=== PATIENT | female | born 1980 | race Caucasian/White ===

== ENCOUNTER 2022-06-02 10:44 | Emergency (ER) | payer MEDICAID, OTHER ==
[~2022-06-02] VITALS: Ht 187.9 cm; Wt 89.8 kg
[2022-06-02] MEDS ORDERED: fentaNYL INJ 100 MCG/2 ML AMP IVP STA ×2 (11:12→13:18)
[2022-06-02] MEDS ORDERED: HEParin (CENTRAL IV FLUSH) 500 UNIT/5 ML SYR ONE (11:31)
[2022-06-02 12:23] LABS: BASOPHILS # (AUTO) 0.1 10^3/uL (0.0-0.1); BASOPHILS % (AUTO) 1 % (0-10); EOSINOPHILS # (AUTO) 0.3 10^3/uL (0.0-0.3); EOSINOPHILS % (AUTO) 3 % (0-10); HEMATOCRIT 42 % (35-52); HEMOGLOBIN 13.2 g/dL (11.5-16.0); LYMPHOCYTES # (AUTO) 2.7 10^3/uL (1.0-4.0); LYMPHOCYTES % (AUTO) 21 % (12-44); MEAN CORPUSCULAR HEMOGLOBIN 29 pg (25-34); MEAN CORPUSCULAR HGB CONC 32 g/dL (32-36); MEAN CORPUSCULAR VOLUME 91 fL (80-99); MEAN PLATELET VOLUME 10.4 fL (9.0-12.2); MONOCYTES # (AUTO) 0.7 10^3/uL (0.0-1.0); MONOCYTES % (AUTO) 6 % (0-12); NEUTROPHILS # (AUTO) 8.9 10^3/uL (1.8-7.8); NEUTROPHILS % (AUTO) 70 % (42-75); PLATELET COUNT 296 10^3/uL (130-400); WHITE BLOOD COUNT 12.7 10^3/uL (4.3-11.0)
--- NOTE | 2022-06-02 12:35 | Diagnostic Imaging Report ---
EXAMINATION: Left foot radiograph EXAM DATE: 06/02/2022 11:56 AM COMPARISON: None available. HISTORY: increased pain x 1 week, hx osteomyelitis, nonhealing diabetic ulcer TECHNIQUE: 3 views FINDINGS: Soft tissue injury overlying the inferior plantar soft tissues. There is osseous irregularity seen within the cuboid and fifth metatarsal. No acute fracture is seen. There is mild joint space narrowing within the tarsometatarsal joints. IMPRESSION: 1. Soft tissue irregularity with osseous erosion of the adjacent fifth metatarsal and cuboid bone compatible with history of osteomyelitis. Dictated by: Dictated on workstation # [id number]
[2022-06-02 12:41] LABS: SMEAR SCAN COMMENT RARE PLT CLUMPS
--- NOTE | 2022-06-02 12:50 | ED Integumentary General ---
General Chief Complaint: Skin/Wound Problems Stated Complaint: LT FOOT WOUND/PAIN Nursing Triage Note: Patient reports she has had a wound on her left foot for 2 years. She states her wound care provider at [place], [place] had recommended an above the knee amputation d/t osteomyelits, but his surgical privileges have been revoked and he is no longer able to do the surgery. Source: patient, spouse History of Present Illness Date Seen by Provider: Jun 02, 2022 Time Seen by Provider: 10:48 Initial Comments 42-year-old female presenting by private vehicle to the emergency department with her spouse due to complaints of increased pain to her chronic diabetic left foot wound. She states the wound has been there for over 2 years and she follows with a primary care provider and surgeon at [facility]. She states in the last week she has had increased pain and purulent drainage from the diabetic ulcer on the foot. She had vascular testing done at [facility] in [place] on 24 May 2022 for Distal Circulation Examination. 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 reports that he feels like she needs to be admitted to hospital somewhere for amputation and more emergent medical management. Patient voiced frustration with the system and her being unable to continue to get care with current surgeon. She states that she has been taking Levaquin and daptomycin daily as prescribed by her surgeon and wound care doctor from [place]. She has previously been on vancomycin and states that her veins are so deteriorated from IV antibiotics as well as peripheral vascular disease that she has a port in her right chest for IV medications and blood draws. Timing/Duration: getting worse (She felt her symptoms were worsening in the last week but has had a diabetic foot ulcer for over 2 years.) Severity: severe Location: feet (Left lateral foot) Possible Cause: other (Poor circulation with diabetes) Associated Symptoms: No blisters; edema (Left lower extremity 1+ nonpitting edema); No fever, No flushing, No headache; malaise, numbness (Chronic diabetic neuropathy) Allergies and Home Medications Allergies Coded Allergies: aspirin (Verified Allergy, Unknown, 06/02/22) latex (Verified Allergy, Unknown, 06/02/22) zolpidem (Verified Allergy, Unknown, 06/02/22) Patient Home Medication List Home Medication List Reviewed: Yes Review of Systems Review of Systems Constitutional: No chills, No fever; malaise EENTM: no symptoms reported Respiratory: no symptoms reported Cardiovascular: no symptoms reported Gastrointestinal: No nausea, No vomiting Genitourinary: No dysuria Musculoskeletal: see HPI Skin: see HPI (Chronic diabetic foot ulcer with exposure of muscles and tendons but no bone visible) Psychiatric/Neurological: See HPI Past Yfoevks-Mfvtjf-Zihqjy Hx Patient Social History Tobacco Use?: Yes Tobacco type used: Cigarettes Smoking Status: Current Everyday Smoker Substance use?: No Alcohol Use?: No Pt feels they are or have been: No Past Medical History Surgery/Hospitalization HX: DM, left foot ulcer, bipolar, gallstones, diverticulosis, degenerative disc disease, sciatica Physical Exam Vital Signs Vital Signs - First Documented 06/02/22 10:47 Temp 35.6 Pulse 106 Resp 18 B/P (MAP) 118/77 (91) Pulse Ox 100 O2 Delivery Room Air Capillary Refill : Less Than 3 Seconds General Appearance: no apparent distress, other (Appears older than stated age) Cardiovascular: No normal peripheral pulses (+1 dorsalis pedis pulse bilaterally); regular rate, rhythm Respiratory: chest non-tender, lungs clear, normal breath sounds, no respiratory distress, no accessory muscle use Gastrointestinal: normal bowel sounds, non tender, soft, no pulsatile mass Extremities: swelling (mild swelling to left foot and lower extremity. open wound stage 2 with exposure of muscle and ligaments but no bone visible on lateral left foot, Approximately 8.5 cm long by 3.8 cm wide. Foul odor noted and purulent appearing drainage on dressing that patient has in place on arrival to ED. No active drainage on exam) Neurologic/Psychiatric: alert, oriented x 3 Skin: warm/dry Skin Problem Location: lower extremities (left lower extremity) Skin Problem Character: erythema, lesion (diabetic foot ulcer stage 2 on left lateral foot) Progress/Results/Core Measures Results/Orders Lab Results Laboratory Tests Test 06/02/22 12:15 06/02/22 12:35 Range/Units White Blood Count 12.7 H 4.3-11.0 10^3/uL Red Blood Count 4.58 3.80-5.11 10^6/uL Hemoglobin 13.2 11.5-16.0 g/dL Hematocrit 42 35-52 % Mean Corpuscular Volume 91 80-99 fL Mean Corpuscular Hemoglobin 29 25-34 pg Mean Corpuscular Hemoglobin Concent 32 32-36 g/dL Red Cell Distribution Width 15.7 H 10.0-14.5 % Platelet Count 296 130-400 10^3/uL Mean Platelet Volume 10.4 9.0-12.2 fL Immature Granulocyte % (Auto) 1 % Neutrophils (%) (Auto) 70 42-75 % Lymphocytes (%) (Auto) 21 12-44 % Monocytes (%) (Auto) 6 0-12 % Eosinophils (%) (Auto) 3 0-10 % Basophils (%) (Auto) 1 0-10 % Neutrophils # (Auto) 8.9 H 1.8-7.8 10^3/uL Lymphocytes # (Auto) 2.7 1.0-4.0 10^3/uL Monocytes # (Auto) 0.7 0.0-1.0 10^3/uL Eosinophils # (Auto) 0.3 0.0-0.3 10^3/uL Basophils # (Auto) 0.1 0.0-0.1 10^3/uL Immature Granulocyte # (Auto) 0.1 0.0-0.1 10^3/uL Smear Scan RARE PLT CLUMPS Sodium Level 136 135-145 MMOL/L Potassium Level 4.5 3.6-5.0 MMOL/L Chloride Level 102 98-107 MMOL/L Carbon Dioxide Level 24 21-32 MMOL/L Anion Gap 10 5-14 MMOL/L Blood Urea Nitrogen 11 7-18 MG/DL Creatinine 0.55 L 0.60-1.30 MG/DL Estimat Glomerular Filtration Rate 118 BUN/Creatinine Ratio 20 Glucose Level 196 H 70-105 MG/DL Lactic Acid Level 1.18 0.50-2.00 MMOL/L Calcium Level 9.6 8.5-10.1 MG/DL Corrected Calcium 9.5 8.5-10.1 MG/DL Total Bilirubin 0.2 0.1-1.0 MG/DL Aspartate Amino Transf (AST/SGOT) 8 5-34 U/L Alanine Aminotransferase (ALT/SGPT) 7 0-55 U/L Alkaline Phosphatase 96 40-136 U/L C-Reactive Protein 2.03 H <0.50 MG/DL Total Protein 8.3 H 6.4-8.2 GM/DL Albumin 4.1 3.2-4.5 GM/DL My Orders Orders - REYES NAPIER MD Cbc With Automated Diff (06/02/22 11:08) Comprehensive Metabolic Panel (06/02/22 11:08) Blood Culture (06/02/22 11:08) Ed Iv/Invasive Line Start (06/02/22 11:08) Crp Fs (06/02/22 11:08) Lactic Acid Analyzer (06/02/22 11:08) Foot 3 View Left (06/02/22 11:08) Fentanyl Inj (Sublimaze Injection) (06/02/22 11:12) Heparin (Central Iv Flush) (Heparin (Pedrito (06/02/22 11:31) Fentanyl Inj (Sublimaze Injection) (06/02/22 13:18) Hydrocodone/Apap 7.5/325 Tab (Lortab 7. (06/02/22 13:18) Heparin (Central Iv Flush) (Heparin (Pedrito (06/02/22 14:00) Medications Given in ED Current Medications Medications Dose Ordered Sig/Tristian Route Start Time Stop Time Status Last Admin Dose Admin Heparin Sodium (Porcine) 500 unit STK-MED ONCE .ROUTE 06/02/22 11:31 06/02/22 11:33 DC 06/02/22 11:45 500 UNIT Vital Signs/I&O 06/02/22 06/02/22 10:47 14:15 Temp 35.6 Pulse 106 97 Resp 18 16 B/P (MAP) 118/77 (91) 115/72 Pulse Ox 100 100 O2 Delivery Room Air Room Air Blood Pressure Mean: 91 Progress Progress Note #1: Progress Note Potential diagnosis of sepsis, progressive osteomyelitis, nonhealing diabetic foot ulcer, peripheral vascular disease, ischemic limb. Try to access implanted port in the right chest and obtain labs for complete blood count, blood cultures, lactic acid, comprehensive metabolic profile, CRP. Obtain x-rays of the left foot looking for bony destruction or signs of gangrene. Administer fentanyl 50 mcg IV for pain as she states that she chronically takes hydrocodone 7.5 but did not take 1 prior to coming to the emergency department. Progress Note #2: Progress Note Patient's port was accessed but while it would flush it was not drawing back for blood return to be able to obtain blood for testing. She had to have peripheral venipuncture to obtain blood for testing. This process did cause a delay in obtaining tests to determine patient's disposition and treatment. On my review of her three-view films of the left foot she had evidence of bony destruction but I did not appreciate any air in the tissues to indicate gangrene. Progress Note #3: Progress Note Labs shows mild elevation of the white blood cell count to 12.7 on a complete blood count. She had comprehensive metabolic profile with lactic acid of 1.18. Her renal function was normal and she did not show acute electrolyte imbalance other than elevation of sugar to 196. At 1252 I discussed her case with Dr. Sanchez, pricing strategist surgeon for [facility]. He advised that if the patient was admitted to hospitalist service and medically cleared and management of her chronic health conditions and diabetes he would be happy to consult and follow along for possible amputation or surgical care of the wound and extremity. 1320 D/w Dr. Meza, director of food and nutrition services hospitalist for unassigned patients. Reviewed patient presentation and worsening of her chronic diabetic foot ulcer despite levaquin and daptomycin at home. Labs did not show sepsis or indication for ischemic extremity. She was agreeable with admit and requested to administer Vancomycin and Zosyn for broader coverage of the diabetic foot ulcer. She was also agreeable to hold off on wound culture as the chronic wound is likely colonized and if she is to undergo amputation that it would not necessarily change her care and treatment in the acute setting. When I went to update patient and spouse about the plan and that I was able to get accepting physicians at [facility] for admit, she then stated that she d id not think she wanted to be admitted. She now voices that she has an appointment with Dr. Santamaria, a different surgeon at [facility] on Sunday. She voices that she realizes this is a chronic wound and she has been dealing with it for a long time. She thinks that she would like to see what the new surgeon says when she goes on Sunday rather than be admitted to the hospital for the weekend. She was agreeable to getting the information for Dr. SANCHEZ and may call his clinic for follow-up but again she wanted to wait and see what the other surgeons had on Sunday. She refused admission and as she was not septic or showing acute organ failure or dysfunction from her chronic osteomyelitis and diabetic foot ulcer I felt that she would be safe in going home and following up through her regular providers at [place]. I did not have any tests that would indicate that she absolutely had to have admission, however I did point out that her nonhealing wound might improve with IV antibiotics and medical management with the second opinion. She may benefit from having an admission where the bone could be reevaluated and have a more aggressive treatment plan. She voiced understanding of this reasoning but still refused admission. I advised her I did not have any specific recommendations for pain control or antibiotics based off of today's tests and would recommend she continue with her on pain management from her primary care provider and antibiotics as currently prescribed. Keep appointment on Sunday to see the neurosurgeon, Dr. Santamaria. Given information for Dr. SANCEHZ in [place] for a possible second opinion follow-up. Counseled patient if she felt like her symptoms were worsening over the weekend she could certainly go directly to [facility] [place], operated by [facility] for evaluation and possible admission. I updated Dr. Meza that patient had decided to go home and continue with outpatient treatment and follow up as set up by her PCP at [facility]. Diagnostic Imaging Diagonstic Imaging: Xray Plain Films/CT/US/NM/MRI: other (foot) Comments [facility]WORK[facility]k [place], [place] NAME: NIKA ALBERTS [facility] REC#: [id number] PT STATUS: DEP ER : 1980 PHYSICIAN: REYES NAPIER MD ADMIT DATE: 06/02/22/ER FS Signed Date of Exam:06/02/22 FOOT 3 VIEW LEFT EXAMINATION: Left foot radiograph EXAM DATE: 06/02/2022 11:56 AM COMPARISON: None available. HISTORY: increased pain x 1 week, hx osteomyelitis, nonhealing diabetic ulcer TECHNIQUE: 3 views FINDINGS: Soft tissue injury overlying the inferior plantar soft tissues. There is osseous irregularity seen within the cuboid and fifth metatarsal. No acute fracture is seen. There is mild joint space narrowing within the tarsometatarsal joints. IMPRESSION: 1. Soft tissue irregularity with osseous erosion of the adjacent fifth metatarsal and cuboid bone compatible with history of osteomyelitis. Dictated by: Dictated on workstation # [id number] Dict: 06/02/22 1230 Trans: 06/02/22 1558 [facility] [phone] Interpreted by: ADITYA TINEO DO Electronically signed by: ADITYA TINEO DO 06/02/22 1558 Reviewed: Reviewed by Me Departure Impression Primary Impression: Diabetic ulcer of foot associated with diabetes mellitus due to underlying condition, with muscle involvement without evidence of necrosis Qualified Codes: E08.621 - Diabetes mellitus due to underlying condition with foot ulcer; L97.425 - Non-pressure chronic ulcer of left heel and midfoot with muscle involvement without evidence of necrosis Additional Impressions: Chronic osteomyelitis of left foot Peripheral vascular disease in diabetes mellitus Disposition: HOME, SELF-CARE Condition: Stable Departure-Patient Inst. Decision time for Depature: 14:05 Referrals: IRMA CHRIS MD (PCP) Primary Care Physician ALBERTO SANCHEZ MD Patient Instructions: Diabetic Foot Ulcer (DC), Diabetic Neuropathy (DC), Osteomyelitis in Adults Add. Discharge Instructions: Your labs do not show sepsis but the tests do go along with you having the chronic osteomyelitis with your Diabetic foot ulcer. Keep appointment with Dr. Santamaria on Sunday but if you wanted to see a different surgeon for another opinion you could call Dr. Sanchez in [place] and set up an appointment with him. Continue taking antibiotics and follow instructions from your regular providers. All discharge instructions reviewed with patient and/or family. Voiced understanding. REYES NAPIER MD Jun 02, 2022 12:50
[2022-06-02 13:04] LABS: POTASSIUM 4.5 MMOL/L (3.6-5.0)
[2022-06-02 13:05] LABS: ALBUMIN 4.1 GM/DL (3.2-4.5); BILIRUBIN,TOTAL 0.2 MG/DL (0.1-1.0); CALCIUM 9.6 MG/DL (8.5-10.1); CREATININE SERUM 0.55 MG/DL (0.60-1.30); TOTAL PROTEIN 8.3 GM/DL (6.4-8.2)
[2022-06-02] MEDS ORDERED: HYDROcodone/APAP 7.5 MG/325 MG (LORTAB, LORCET PLUS) TABLET PO STA (13:18)
[2022-06-02] MEDS ORDERED: PIPERACILLIN SODIUM/TAZOBACTAM 4.5 GM in NS (IVPB) 100 ML IV STA (13:35)
[2022-06-02] MEDS ORDERED: VANCOMYCIN INJECTION 1,000 MG in NS (IVPB) 250 ML IV STA (13:35)
[2022-06-02] MEDS ORDERED: HEParin (CENTRAL IV FLUSH) 500 UNIT/5 ML SYR IV STA (14:00)
[2022-06-02 14:15] VITALS: BP 115/72
== END 2022-06-02 14:15 | disposition home or self-care (01) ==
LOC: ER FS 10:46
DX: E08.621 Diabetes mellitus due to underlying condition with foot ulcer (principal); L97.525 Non-pressure chronic ulcer of other part of left foot with muscle involvement without evidence of necrosis; M86.672 Other chronic osteomyelitis, left ankle and foot; F17.210 Nicotine dependence, cigarettes, uncomplicated; Z79.899 Other long term (current) drug therapy; Z91.040 Latex allergy status; Z79.1 Long term (current) use of non-steroidal anti-inflammatories (NSAID)
CPT/HCPCS: 36415; 73630; 80053; 83605; 85025; 86141; 87040